=== PATIENT | male | born 1985 | race Caucasian/White ===

== ENCOUNTER 2023-03-10 10:31 | Emergency (ER) | payer SELFPAY ==
[2023-03-10 10:37] VITALS: BP 144/91; PULSE 55; RESP 16; TEMP 36.5; O2SAT 100; BMI 26.9
--- NOTE | 2023-03-10 10:57 | USR_ITS ---
PROCEDURE INFORMATION: Exam: US Duplex Left Lower Extremity Veins, Limited Exam date and time: 03/10/2023 11:22 AM Age: 38 years old Clinical indication: Left lower leg pain. DVT, varicose veins, localized trauma 5 days ago, persistent pain TECHNIQUE: Imaging protocol: Real-time duplex ultrasound of the left extremity with 2-D landis scale, color Doppler flow and spectral waveform analysis including responses to compression and other maneuvers (when performed) with image documentation. Limited exam focused on the left lower extremity veins. COMPARISON: No relevant prior studies available. FINDINGS: The common femoral, femoral, popliteal and posterior tibial veins are patent. There is appropriate compression and augmentation involving the deep veins. Doppler interogation of the deep veins reveals venous blood flow. There are subcutaneous varices below the left knee that are thrombosed. US/CV venous duplex [facility] [id number] IMPRESSION: 1. Thrombosed subcutaneous varices below the left knee. 2. No evidence of deep venous thrombosis.
--- NOTE | 2023-03-10 11:00 | W.ED.EXTPRO ---
HPI - Extremity Problem General: Chief complaint: Extremity Injury, Lower Stated complaint: left leg pain Time Seen by Provider: 03/10/23 10:46 Source: patient Mode of arrival: ambulatory Limitations: no limitations History of Present Illness: 38yo male Presents with family for pain to the left lower leg that started 5 days ago. Patient reports he does have a history of varicose veins. States that he struck one of his varicosities on a trailer hitch 5 days ago. He states that he did have localized swelling to the area, but then it moved to the back portion of the leg and has been persistent for the past 4 days. Patient reports that he has increased pain when he first wakes up, but is still able to be active. He states that his pain is not as bothersome throughout the day. Patient denies history of blood clots, any chronic medications, any other concern at this time. Associated symptoms: Deny fever(s) Review of Systems Const: Denies: fever(s), chills or body aches Musc: Reports: extremity pain (left leg) and extremity swelling (localized, left lower leg) Skin/Breast: Denies: erythema Neuro: Denies: weakness in extremities Physical Exam Const: COMMON NORMALS: no acute distress and alert GENERAL APPEARANCE: cooperative ORIENTATION/CONSCIOUSNESS: Yes awake OTHER: Patient is sitting upright in a recliner in no acute distress. He is able to give history with no difficulty. He is able to make position changes unassisted. Family is at bedside HENMT: COMMON NORMALS: normocephalic, external ears normal and Normal external nose present HEAD & SCALP: normocephalic NOSE: Normal external nose present EXTERNAL EAR: Yes external ears normal Eye: COMMON NORMALS: conjunctivae normal CONJUNCTIVA: Yes conjunctivae normal Chest: CHEST: Yes Symmetrical chest wall rise Resp: COMMON NORMALS: normal respiratory effort Extremity: COMMON NORMALS: capillary refill normal; negative for no calf tenderness LEFT LOWER EXTREMITY: Yes lower leg (tenderness to palpation to the left posteromedial leg. Localized swelling) Neuro: COMMON NORMALS: moves all extremities SENSORIUM/ORIENTATION: Yes alert SPEECH: speech normal Psych: COMMON NORMALS: cooperative ATTITUDE: Yes calm Course Vital Signs: Vital signs: Vital Signs Temperature 97.7 F 03/10/23 10:37 Pulse Rate 55 L 03/10/23 10:37 Respiratory Rate 16 03/10/23 10:37 Blood Pressure 144/91 03/10/23 10:37 Pulse Oximetry 100 03/10/23 10:37 Oxygen Delivery Me thod Room Air 03/10/23 10:37 MDM - Extremity (Nontraumatic) Medical Decision Making 38yo Male here with family for concerns of pain and swelling with tenderness to the left posterior medial leg for the past 4 days following an injury to the front of the left lower leg that occurred 5 days ago. Patient reports he hit his leg on a trailer hitch directly over one of his varicose veins. He reports that there was localized pain and swelling at the area where he hit for about a day, then it moved to the back portion of his leg and has been persistent since. Patient denies any history of blood clots or chronic medications. He denies any other concerns at this time. Patient is nontoxic in appearance. Vital signs are stable. US Reveals a thrombosed subcutaneous varices below the left knee, no evidence of a deep venous thrombosis. Discussed findings with patient and family. Encouraged use of warm compresses, elevation, and compression socks. Discussed that he may take aspirin daily in addition to the above recommendations. Recommend he monitor closely for worsening pain, swelling of the entire leg, redness of the leg. Advised he contact primary care next week with an update of symptoms and to discuss a possible recheck. Advised to return to the emergency department if any rapid worsening symptoms and as needed. Differential Diagnosis Likely superficial thrombophlebitis and deep vein thrombosis of lower extremity Lab Data I reviewed the patient's lab results. Radiology Impressions Venous Duplex 03/10/23 10:57 IMPRESSION: 1. Thrombosed subcutaneous varices below the left knee. 2. No evidence of deep venous thrombosis. ADDENDUM: 03/10/23 1152 Findings discussed with Boo Olmstead NP at 03/10/2023 11:49 AM CDT. Discharge Plan Discharge Patient Disposition: Home Clinical Impression: Superficial thrombosis of left lower extremity Condition: Stable Discharge Orders: Discharge ED (Routine); Ordered 03/10/23 Ordered By: Boo Olmstead Referrals: [facility] [Primary Care Provider] - Discharge Diet: Usual diet Discharge Activity: Resume usual activity Patient Instructions: Pain Management Activity Restrictions/Additional Instructions: Use of warm compress for 10 minutes at a time and compression socks will help the superficial clot resolve faster. Continue to monitor for worsening pain, entire leg swelling/redness Follow up with your doctor, call next week with an update of symptoms and for a possible recheck Return to the emergency department if rapid worsening and as needed Coding Level of Care Code ED [employer] for Abby Huynh
== END 2023-03-10 12:05 | disposition home or self-care (01) ==
PROVIDERS: Emergency Provider Nurse Practitioner
DX: I82.812 Embolism and thrombosis of superficial veins of left lower extremity (principal)
CPT/HCPCS: 93971; 99284